=== PATIENT | female | born 1970 | race Asian ===

== ENCOUNTER 2020-09-25 16:40 | Emergency (ER) | payer OTHER ==
[~2020-09-25] VITALS: Wt 75.0 kg
[2020-09-25 16:40] VITALS: BP 153/95; TEMP 98.2
[2020-09-25 17:11] LABS: PLATELET COUNT 147 K/uL (152-353)
[2020-09-25 17:43] LABS: POTASSIUM 4.3 mmol/L (3.6-5.2)
[2020-09-25] MEDS ORDERED: AMLODIPINE BESYLATE PO (22:27)
[2020-09-25] MEDS ORDERED: BAYER ASPIRIN E81 MG PO (22:28)
[2020-09-25] MEDS ORDERED: FERROUS SULF325 MG PO (22:31)
[2020-09-25] MEDS ORDERED: HALO5INJ3 IM (22:35)
[2020-09-25] MEDS ORDERED: HYDR25TA60 PO (22:36)
[2020-09-25] MEDS ORDERED: RISP1TAB PO (22:40)
[2020-09-25] MEDS ORDERED: LIPITOR40 MG PO (22:48)
[2020-09-25] MEDS ORDERED: SENNA LAX8.6 MG PO (22:57)
[2020-09-25] MEDS ORDERED: TYLENOL325 MG PO (22:59)
[2020-09-25] MEDS ORDERED: [UNRECOGNIZED DRUG - OTHER] PO (23:08)
[2020-09-25] MEDS ORDERED: POTASSIUM CHLORIDE PO (23:11)
== END 2020-09-25 18:51 | disposition other institution (70) ==
LOC: ED 16:44
PROVIDERS: Family Medicine
DX: R46.89 Other symptoms and signs involving appearance and behavior (principal); F20.89 Other schizophrenia; Z11.52 Encounter for screening for COVID-19; Z04.6 Encounter for general psychiatric examination, requested by authority
CPT/HCPCS: 80053; 81000; 85027; 87635; 93005; 99283; U0003